=== PATIENT | female | born 1970 | race Caucasian/White ===

== ENCOUNTER 2018-05-06 19:40 | Emergency (ER) | payer MEDICARE, OTHER | END 2018-05-06 21:17 | disposition left against medical advice (07) | LOC: FTE 19:40 | DX: T19.2XXA Foreign body in vulva and vagina, initial encounter (principal); F17.210 Nicotine dependence, cigarettes, uncomplicated; X58.XXXA Exposure to other specified factors, initial encounter; Y92.9 Unspecified place or not applicable | CPT/HCPCS: 99282 ==

== ENCOUNTER 2018-06-09 08:37 | Emergency (ER) | payer MEDICARE, OTHER ==
[2018-06-09] MEDS ORDERED: HYDROCODONE/APAP (10/325) TAB PO (09:00)
[2018-06-09] MEDS: OXYCODONE/ACETAMINOPHEN (10/325) TAB PO (09:08)
[2018-06-09] MEDS: ONDANSETRON (ODT) 4 MG TAB ODT (09:08)
== END 2018-06-09 13:01 | disposition home or self-care (01) ==
LOC: E/R 08:37
DX: R51 Headache (principal)
CPT/HCPCS: 70450; 81025; 99284-25

== ENCOUNTER 2019-03-18 16:35 | Emergency (ER) | payer SELFPAY, OTHER, MEDICARE | END 2019-03-18 20:13 | disposition left against medical advice (07) | LOC: FTE 20:13 | DX: Z53.21 Procedure and treatment not carried out due to patient leaving prior to being seen by health care provider (principal) ==

== ENCOUNTER 2019-03-19 03:04 | Emergency (ER) | payer MEDICARE, OTHER ==
[2019-03-19] MEDS: SOD CHLORIDE 0.9% 1,000 ML IV (04:26)
[2019-03-19] MEDS: LORAZEPAM 2 MG INJ IV (04:26)
[2019-03-19 04:39] LABS: ADD MAN DIFF? NO
[2019-03-19 04:40] LABS: BASOPHIL # 0.1 10^3/ul (0.0-0.1); BASOPHILS % 1.5 % (0.0-2.0); EOSINOPHILS # 0.2 10^3/ul (0.0-0.5); EOSINOPHILS % 2.7 % (0.0-7.0); HEMATOCRIT 40.2 % (37.0-47.0); HEMOGLOBIN 12.8 g/dl (12.0-16.0); LYMPHOCYTES # 2.8 10^3/ul (0.8-2.9); LYMPHOCYTES % 50.1 % (15.0-51.0); MEAN CORPUSCULAR HEMOGLOBIN 27.5 pg (29.0-33.0); MEAN CORPUSCULAR HGB CONC 31.8 g/dl (32.0-37.0); MEAN CORPUSCULAR VOLUME 86.3 fl (82.0-101.0); MEAN PLATELET VOLUME 10.5 fl (7.4-10.4); MONOCYTE # 1.1 10^3/ul (0.3-0.9); MONOCYTES % 20.4 % (0.0-11.0); NEUTROPHIL # 1.4 10^3/ul (1.6-7.5); NEUTROPHILS % 25.1 % (39.0-77.0); PLATELET COUNT 250 10^3/UL (140-415); RED BLOOD COUNT 4.66 10^6/ul (4.20-5.40); RED CELL DISTRIBUTION WIDTH 14.2 % (11.5-14.5)
[2019-03-19 04:40] LABS: WHITE BLOOD COUNT 5.5 10^3/ul (4.8-10.8)
[2019-03-19] MEDS: METHYLPRED. NA SUCC 1,000 MG in DEXTROSE 5% 50 ML IVPB (05:02)
[2019-03-19 05:07] LABS: ANION GAP 5 (5-13); BLOOD UREA NITROGEN 10 mg/dl (7-20); CALCIUM 9.3 mg/dl (8.4-10.2); CARBON DIOXIDE 29 mmol/L (21-31); CHLORIDE 109 mmol/L (97-110); CREATININE 0.84 mg/dl (0.44-1.00); Estimated GFR > 60 mL/min (>60); GLUCOSE 103 mg/dl (70-220); POTASSIUM 3.9 mmol/L (3.5-5.1); SODIUM 143 mmol/L (135-144)
[2019-03-19] MEDS: morphine 4 MG/ML VIAL IM (07:52)
== END 2019-03-19 08:16 | disposition home or self-care (01) ==
LOC: FTE 03:04
DX: G35 Multiple sclerosis (principal)
CPT/HCPCS: 80048; 85025; 96372; 96374; 96375; 99284-25